=== PATIENT | female | born 1980 | race Caucasian/White ===

== ENCOUNTER 2017-10-14 18:48 | Emergency (ER) | payer OTHER ==
[~2017-10-14] VITALS: Ht 160 cm; Wt 99.3 kg
[~2017-10-14 18:48] MED LIST: ALBUTEROL SULF8.5 GM; ALBUTEROL0.63 MG/3; LEVOTHYROXINE50 MCG PO; MONTELUKAST SOD10 MG PO
[2017-10-14] MEDS ORDERED: ALBUTEROL/IPRATROPIUM 3 ML NEB NEB ONE (19:15)
[2017-10-14] MEDS ORDERED: PREDNISONE 20 MG TAB PO ONE (19:15)
--- NOTE | 2017-10-14 19:58 | Diagnostic Imaging Report ---
EXAMINATION: PA and lateral views of the chest. COMPARISON: None CLINICAL HISTORY: Chest tightness, dyspnea DISCUSSION: Lines/tubes: None. Lungs: The lungs are well inflated and clear. There is no evidence of pneumonia or pulmonary edema. Pleura: There is no pleural effusion or pneumothorax. Heart and mediastinum: Borderline enlargement of the cardiac silhouette. Pulmonary vasculature is normal. Bones and soft tissues: No acute bony abnormalities. IMPRESSION: Borderline enlargement of the cardiac silhouette, without acute cardiopulmonary abnormalities. Signed by: Dr. Danny Lewis M.D. on 10/14/2017 7:55 PM
== END 2017-10-14 20:40 | disposition home or self-care (01) ==
LOC: ER 18:48
DX: R06.00 Dyspnea, unspecified (principal); R06.2 Wheezing; E78.5 Hyperlipidemia, unspecified; E07.9 Disorder of thyroid, unspecified; F41.9 Anxiety disorder, unspecified; Z88.0 Allergy status to penicillin
CPT/HCPCS: 71046; 94640; 99284

== ENCOUNTER → 2020-02-28 | Outpatient (CLI) | payer BC | LOC: MAMMO 09:46 | PROVIDERS: ATTEND Obstetrics & Gynecology | DX: Z12.31 Encounter for screening mammogram for malignant neoplasm of breast (principal) | CPT/HCPCS: 77067 ==

== ENCOUNTER → 2020-03-09 | Outpatient (CLI) | payer BC ==
--- NOTE | 2020-03-09 11:54 | Diagnostic Imaging Report ---
EXAMINATION: KNEES STANDING AP VIEW INDICATION: Knee pain COMPARISON: None FINDINGS: AP view of both knees demonstrates no acute fracture or dislocation. Alignment is anatomic. No substantial degenerative change. Soft tissues appear unremarkable. IMPRESSION: No acute osseous injury. Signed by: Zhane Castro MD on 03/09/2020 11:51 AM
== END ==
LOC: RAD 10:46
PROVIDERS: ATTEND Internal Medicine
DX: M25.562 Pain in left knee (principal); M25.561 Pain in right knee
CPT/HCPCS: 73565; 93971

== ENCOUNTER → 2021-03-19 | Outpatient (CLI) | payer BC | LOC: MAMMO 09:58 | PROVIDERS: ATTEND Internal Medicine | DX: Z12.31 Encounter for screening mammogram for malignant neoplasm of breast (principal) | CPT/HCPCS: 77067 ==

== ENCOUNTER → 2022-03-19 | Outpatient (CLI) | payer OTHER | LOC: MAMMO 02-24 10:37 | PROVIDERS: ATTEND Internal Medicine | DX: Z12.31 Encounter for screening mammogram for malignant neoplasm of breast (principal) | CPT/HCPCS: 77067 ==